=== PATIENT | male | born 1945 | race Caucasian/White ===

== ENCOUNTER 2021-05-16 15:53 | Emergency (ER) | payer MEDICARE, SELFPAY ==
--- NOTE | ~2021-05-16 | CT_ITS ---
EXAMINATION: CTA OF THE HEAD AND NECK CLINICAL INFORMATION: Possible aneurysm on CT of the head. COMPARISON: CT dated 05/16/2021 at 4:37 PM. TECHNIQUE: Test bolus sequences followed by intravenous administration 100 mL of Omnipaque 350. Helical imaging was performed in the axial plane from the mediastinum to the skull vertex. Delayed postcontrast imaging of the head was also performed. The data was processed at the fastener technologist's workstation for generation of MIP sequences. Three-dimensional volume rendered reformatted images were also generated at an offline 3-D workstation. Stenoses are assessed in accordance with NASCET criteria unless otherwise indicated. DLP: 1651 mGy-cm. FINDINGS: CT head: The hyperattenuating sellar/suprasellar lesion does not demonstrate significant enhancement on postcontrast images. No suspicious enhancing lesions are identified. There is no evidence of acute intracranial hemorrhage or territorial infarction. There is no loss of [place] to white matter differentiation. No abnormal mass effect or midline shift is seen. No extra-axial fluid collections are identified. The ventricles are normal in size. Multiple areas of hypoattenuation in the subcortical and periventricular white matter are most consistent with chronic microangiopathic changes. Small lacunar infarcts are present in the basal ganglia including the thalami. Globes are aphakic. The osseous structures and soft tissues are normal. The mastoid air cells and visualized portions of the paranasal sinuses are well aerated. CTA neck: The aortic arch is of normal contour and caliber. Classic 3 vessel branching pattern of the aortic arch. No significant stenosis of the branch origins. Dense calcific atherosclerotic plaques are present at the bilateral carotid bifurcations. There are no significant stenoses of the proximal internal carotid arteries by NASCET criteria. The cervical segments of the vertebral arteries opacify normally without focal stenosis or occlusion. Left vertebral artery is dominant. The thyroid gland is atrophic. Remaining cervical soft tissues are within normal limits. There is multilevel degenerative spondylosis in the cervical spine with a prominent posterior disc osteophyte complex at C5-C6 produces moderate to severe central canal stenosis. Additional mild neural foraminal encroachment is present at multiple levels. Interstitial opacities are evident at the lung apices. Imaged portion of the mediastinum is unremarkable. CTA head: Calcific atherosclerosis is present within the cavernous segments of both internal carotid arteries with relatively mild stenoses of up to 30 percent bilaterally. No no proximal large artery occlusion or saccular intradural aneurysm. The internal carotid arteries and contiguous with the suprasellar lesion. Normal appearance of the anterior cerebral and middle cerebral arteries without focal occlusion or stenosis. Normal anterior communicating artery. Normal arborization of the middle cerebral arteries. Normal appearance of the intradural vertebral and posterior inferior cerebellar arteries. Normal appearance of the basilar, superior cerebellar, and P1 segments of the posterior cerebral arteries. No posterior communicating arteries are identified. Normal appearance of the distal segments of the posterior cerebral arteries bilaterally. CT/CT angio head neck IMPRESSION: 1. No intracranial aneurysms. 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 A follow-up pituitary protocol MRI with and without contrast is advised. 2. Calcific atherosclerosis at the carotid bulbs bilaterally and at the cavernous segments of the internal carotid arteries. Mild stenoses are evident at the cavernous segments of the internal carotid arteries bilaterally. 3. Multilevel degenerative spondylosis in the cervical spine with a prominent posterior disc osteophyte complex at C5-C6 which produces moderate to severe central canal stenosis.
--- NOTE | ~2021-05-16 | CT_ITS ---
EXAMINATION: CT HEAD WITHOUT CONTRAST CLINICAL INFORMATION: Status post fall. COMPARISON: None TECHNIQUE: Contiguous axial imaging was performed from the skull base to vertex without intravenous administration of contrast. This CT examination was performed using dose optimization techniques as appropriate, variously including the following: *Automated exposure control *Adjustment of mA and/or kV according to patient size (this includes techniques or standardized protocols for targeted exams where dose is matched to indication/reason for exam; i.e. 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 An aneurysm from the and adjacent ICA cannot be excluded. A pituitary macroadenoma is unlikely based on the density of the lesion. Calcific atherosclerosis is present within the cavernous and supraclinoid segments of the internal carotid arteries. There is no evidence of acute intracranial hemorrhage or territorial infarction. No abnormal mass effect or midline shift is seen. [place] to white matter differentiation is well preserved. No extra-axial fluid collections are identified. The ventricles are normal in size. Multiple areas of hypoattenuation in the subcortical and periventricular white matter are most consistent with chronic microangiopathic changes. Small lacunar infarcts are present in the basal ganglia including the thalami. Globes are aphakic. The osseous structures and soft tissues are normal. The mastoid air cells and visualized portions of the paranasal sinuses are well aerated. CT/CT head/brain wo con IMPRESSION: No acute intracranial pathology. 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 An ICA aneurysm is felt to be less likely, but cannot be excluded. Consider further assessment with with pituitary protocol MRI a nonemergent basis. A CTA could also be obtained to better exclude aneurysm if warranted. Mild to moderate chronic white matter microangiopathy changes with small lacunar infarcts in the basal ganglia.
[2021-05-16 16:00] VITALS: BP 171/67; BP 202/100; PULSE 100; PULSE 102; RESP 23; TEMP 37.5; O2SAT 92; O2SAT 93; BMI 80.6
--- NOTE | 2021-05-16 16:33 | ED.GENADULT ---
HPI - General Adult General Chief complaint: General Medical Stated complaint: nausea vomiting unable to urinate Time Seen by Provider: 05/16/21 16:33 Source: patient Mode of arrival: EMS Limitations: no limitations History of Present Illness HPI narrative: Patient is 75 years old with diabetes, peripheral vascular disease status post a left BKA, hypertension and BP at came here for diarrhea since yesterday evening had 5 bowel movements since then also vomited 2 times with nausea and for last 2 days noticed that he has difficulty with pain in urination no fever chills no abdominal pain no flank pain patient does not get very often urinary tract infection also yesterday while transferring from scooter to wheelchair he lost balance and fell landed on the floor hitting his head to the ground no loss of consciousness no other significant injury at this time patient feels fine Related Data Previous Rx's Medication Instructions Recorded cefpodoxime 200 mg tablet 200 mg PO BID #20 tab 05/16/21 ondansetron 4 mg disintegrating 4 mg PO Q6-8H PRN #7 tab 05/16/21 tablet Allergies Allergy/AdvReac Type Severity Reaction Status Date / Time No Known Allergies [NKA] Allergy Mild NOT Unverified 07/02/20 17:38 APPLICABLE Review of Systems Review of Systems: Yes all other systems are reviewed and are negative [facility] Past Medical History Source: old records reviewed Medical History (Updated 05/16/21 @ 21:42 by Juancarlos Storm MD) BPH (benign prostatic hyperplasia) History of left below knee amputation Hyperlipidemia Hypertension Insulin dependent diabetes mellitus Peripheral vascular disease Social History Social History Patient Tobacco Use Status: Never used Tobacco Use of substances other than those prescribed or required for medical reasons: No Advance Directives: No Advance Directives Information Provided: Yes Physical Exam Vital Signs: Vital Signs: Last Vital Signs Temp 99.5 F 05/16/21 16:00 Pulse 98 05/16/21 18:16 Resp 24 H 05/16/21 18:16 BP 171/67 H 05/16/21 16:00 Pulse Ox 96 05/16/21 18:16 Body Mass Index 80.6 Appearance: Alert. Oriented X3. No acute distress. Eyes: PERRLA, No Nystagmus ENT: Pharynx normal. Oral Mucosa moist Neck: Normal inspection. Neck supple. CVS: Normal heart rate and rhythm. Pulses normal. Respiratory: No respiratory distress. Equal air entry bilateral, no wheezing/rales/rhonchi Abdomen: Soft and nontender. Bowel sounds are present, no mass palpable, no CVA tenderness Skin: Skin warm and dry. Normal skin color. Normal skin turgor. Extremities: No lower extremity edema. No calf tenderness, left BKA Neuro: Oriented X 3. No motor deficit. No sensory deficit.No cerebellar signs , cranial nerves II-XII intact Medical Decision Making MDM Narrative Medical decision making narrative: Patient with UTI elevated WBC count no fever no flank pain taking p.o. fluids will give 1 dose of IV Rocephin plan to discharge him home on p.o. antibiotics CT head and CTA head and neck negative patient taking p.o. fluids now feeling much better Lab Data Lab results reviewed: Yes I reviewed the patient's lab results. Result diagrams: 05/16/21 16:55 05/16/21 16:55 Labs: Lab Results 05/16/21 05/16/21 05/16/21 Range/Units 16:55 16:55 17:52 WBC 15.3 H (4.8-10.8) X10*3/uL RBC 4.91 (4.60-5.80) X10*6/uL Hgb 14.0 (14.0-18.0) g/dl Hct 43.9 (42-52) % MCV 89.4 (80-98) fL MCH 28.5 (27.0-33.0) pg MCHC 31.9 (31.0-36.0) g/dl RDW 14.7 (11.0-16.0) % Plt Count 203 (160-400) X10*3/uL MPV 10.8 (9.4-12.4) fL Immature Gran % (Auto) 1.4 H (0.0-0.4) % Neut % (Auto) 87.3 H (45-73) % Lymph % (Auto) 5.0 L (20-40) % [place] % (Auto) 5.9 (2-11) % Eos % (Auto) 0.1 (0-4) % Baso % (Auto) 0.3 (0-2) % Lymph # (Auto) 0.8 L (1.2-4.9) X10*3/uL [place] # (Auto) 0.9 (0.1-1.2) X10*3/uL Eos # (Auto) 0.0 (0.0-0.4) X10*3/uL Baso # (Auto) 0.0 (0.0-0.2) X10*3/uL Abs Immat Gran (auto) 0.22 H (0.00-0.03) X10*3/uL Absolute Neuts (auto) 13.4 H (2.0-8.3) X10*3/uL Absolute Nucleated RBC 0.000 (0.0-0.012) X10*3/uL Nucleated RBC % (auto) 0.0 (0.0-0.2) /100WBC Sodium 137 (135-145) mmol/L Potassium 3.9 (3.3-5.1) mmol/L Chloride 103 (96-108) mmol/L Carbon Dioxide 23 (22-29) mmol/L Anion Gap 15 (12-20) BUN 24 H (9-16) mg/dL Creatinine 1.22 (0.5-1.4) mg/dL Estim Creat Clear Calc 89.5 Estimated GFR 58 Random Glucose 169 H (60-115) mg/dL Calcium 9.1 (8.4-10.2) mg/dL Total Bilirubin 1.1 H (0.0-1.0) mg/dL Direct Bilirubin 0.6 H (0.0-0.5) mg/dL AST 20 (5-37) U/L ALT 10 (0-40) U/L Alkaline Phosphatase 97 (39-117) U/L Troponin I High Sens 20.2 (<3.5-35.0) ng/L Total Protein 8.3 H (6.5-8.0) g/dL Albumin 3.8 (3.5-5.0) g/dL Urine Color Urine Appearance Urine pH (5.0-8.0) Ur Specific [place] (1.005-1.025) Urine Protein (NEG-TRACE) MG/DL Urine Glucose (UA) (NEG) MG/DL Urine Ketones (NEG) MG/DL Urine Blood (NEG) Urine Nitrite (NEG) Ur Leukocyte Esterase (NEG) Urine RBC (0) /HPF Urine WBC (0-4) /HPF Ur Squamous Epith Cells /LPF Ur Renal Epithelial Cell /LPF Urine Bacteria /LPF 08/01/21 Range/Units 20:01 WBC (4.8-10.8) X10*3/uL RBC (4.60-5.80) X10*6/uL Hgb (14.0-18.0) g/dl Hct (42-52) % MCV (80-98) fL MCH (27.0-33.0) pg MCHC (31.0-36.0) g/dl RDW (11.0-16.0) % Plt Count (160-400) X10*3/uL MPV (9.4-12.4) fL Immature Gran % (Auto) (0.0-0.4) % Neut % (Auto) (45-73) % Lymph % (Auto) (20-40) % [place] % (Auto) (2-11) % Eos % (Auto) (0-4) % Baso % (Auto) (0-2) % Lymph # (Auto) (1.2-4.9) X10*3/uL [place] # (Auto) (0.1-1.2) X10*3/uL Eos # (Auto) (0.0-0.4) X10*3/uL Baso # (Auto) (0.0-0.2) X10*3/uL Abs Immat Gran (auto) (0.00-0.03) X10*3/uL Absolute Neuts (auto) (2.0-8.3) X10*3/uL Absolute Nucleated RBC (0.0-0.012) X10*3/uL Nucleated RBC % (auto) (0.0-0.2) /100WBC Sodium (135-145) mmol/L Potassium (3.3-5.1) mmol/L Chloride (96-108) mmol/L Carbon Dioxide (22-29) mmol/L Anion Gap (12-20) BUN (9-16) mg/dL Creatinine (0.5-1.4) mg/dL Estim Creat Clear Calc Estimated GFR Random Glucose (60-115) mg/dL Calcium (8.4-10.2) mg/dL Total Bilirubin (0.0-1.0) mg/dL Direct Bilirubin (0.0-0.5) mg/dL AST (5-37) U/L ALT (0-40) U/L Alkaline Phosphatase (39-117) U/L Troponin I High Sens (<3.5-35.0) ng/L Total Protein (6.5-8.0) g/dL Albumin (3.5-5.0) g/dL Urine Color YELLOW Urine Appearance CLOUDY Urine pH 6.0 (5.0-8.0) Ur Specific [place] 1.025 (1.005-1.025) Urine Protein 2+ H (NEG-TRACE) MG/DL Urine Glucose (UA) >=1000 H (NEG) MG/DL Urine Ketones 5 (NEG) MG/DL Urine Blood 3+ H (NEG) Urine Nitrite POS H (NEG) Ur Leukocyte Esterase TRACE H (NEG) Urine RBC 1-4 (0) /HPF Urine WBC TNTC H (0-4) /HPF Ur Squamous Epith Cells 1+ /LPF Ur Renal Epithelial Cell TRACE /LPF Urine Bacteria 3+ /LPF Discharge Plan Discharge Clinical Impression: Acute UTI Patient Disposition: Home, Self-Care Instructions: Urinary Tract Infection in Men (ED) Additional Instructions: Drink plenty of fluids take antibiotic as prescribed Report to the ER/PCP if not better or vomiting continues Prescriptions: New cefpodoxime 200 mg tablet 200 mg PO BID Qty: 20 RF: 0 ondansetron 4 mg tablet,disintegrating 4 mg PO Q6-8H PRN (Reason: nausea and vomiting) Qty: 7 RF: 0
--- NOTE | 2021-05-16 16:37 | ECG_ITS ---
Test Reason : N/V Blood Pressure : / mmHG Vent. Rate : 103 BPM Atrial Rate : 104 BPM P-R Int : 000 ms QRS Dur : 146 ms QT Int : 406 ms P-R-T Axes : 000 -61 102 degrees QTc Int : 531 ms Sinus tachycardia Left axis deviation Left bundle branch block Abnormal ECG When compared with ECG of 26-FEB-2014 12:17, New LBBB Referred By: Juancarlos Storm Electronically Signed By:OSMIN SHIPMAN
[2021-05-16] MEDS: 0.9 % Sodium Chloride 1,000 ML 999 ML IVCONT (16:58)
[2021-05-16 16:59] LABS: MANUAL DIFF FLAG NO
[2021-05-16 17:19] LABS: Basophils Percent Auto 0.3 % (0-2); Eosinophils Percent Auto 0.1 % (0-4); Hematocrit 43.9 % (42-52); Imm Gran Abs Auto 0.22 X10*3/uL (0.00-0.03); Imm Gran Pct Auto 1.4 % (0.0-0.4); Lymphocytes Absolute Auto 0.8 X10*3/uL (1.2-4.9); Mean Corpuscular HGB Conc 31.9 g/dl (31.0-36.0); Mean Corpuscular Hemoglobin 28.5 pg (27.0-33.0); Mean Corpuscular Volume 89.4 fL (80-98); Mean Platelet Volume 10.8 fL (9.4-12.4); Monocytes Absolute Auto 0.9 X10*3/uL (0.1-1.2); Monocytes Percent Auto 5.9 % (2-11); Neutrophils Absolute Auto 13.4 X10*3/uL (2.0-8.3); Neutrophils Percent Auto 87.3 % (45-73); Platelet Count 203 X10*3/uL (160-400); Red Blood Count 4.91 X10*6/uL (4.60-5.80); Red Cell Distribution Width 14.7 % (11.0-16.0); White Blood Count 15.3 X10*3/uL (4.8-10.8)
[2021-05-16 17:32] LABS: Alanine Aminotransferase 10 U/L (0-40); Albumin Level 3.8 g/dL (3.5-5.0); Alkaline Phosphatase 97 U/L (39-117); Anion Gap 15 (12-20); Aspartate Amino Transferase 20 U/L (5-37); Bilirubin Direct 0.6 mg/dL (0.0-0.5); Bilirubin Total 1.1 mg/dL (0.0-1.0); Blood Urea Nitrogen 24 mg/dL (9-16); Calcium 9.1 mg/dL (8.4-10.2); Carbon Dioxide 23 mmol/L (22-29); Chloride 103 mmol/L (96-108); Creatinine Clr Calc Pharmacy 89.5; Estimated Glomerular Filt Rate 58; Glucose Random 169 mg/dL (60-115); Potassium 3.9 mmol/L (3.3-5.1); Sodium 137 mmol/L (135-145); Total Protein 8.3 g/dL (6.5-8.0)
[2021-05-16 18:16] VITALS: PULSE 98; RESP 24; O2SAT 96
[2021-05-16 18:37] LABS: Troponin-I High Sensitivity 20.2 ng/L (<3.5-35.0)
[2021-05-16 20:00] VITALS: BP 137/68; PULSE 98; RESP 24; TEMP 37.5; O2SAT 96
[2021-05-16] MEDS: iohexoL 350 MG/ML 100 ML INFUS..BTL IV (20:25)
[2021-05-16 20:27] LABS: Glucose Urine UA >=1000 MG/DL (NEG); Leukocyte Esterase Urine TRACE (NEG); Nitrite Urine POS (NEG); Specific Gravity - Urine 1.025 (1.005-1.025); UACC Culture Trigger YES; Urine Blood 3+ (NEG); Urine Ketones 5 MG/DL (NEG); Urine Protein 2+ MG/DL (NEG-TRACE)
[2021-05-16 20:31] LABS: Appearance Urine CLOUDY; Color Urine YELLOW
[2021-05-16 20:59] LABS: Bacteria Urine 3+ /LPF; Renal Epithelial Cells Urine TRACE /LPF; Squamous Epithelial Cell Urine 1+ /LPF; WBC Urine TNTC /HPF (0-4)
[2021-05-16] MEDS: cefTRIAXone sodium 1 GM in 0.9 % Sodium Chloride 50 ML IV (21:36)
--- NOTE | 2021-05-16 22:17 | P.HPHOSP_ITS ---
[facility] Medical History (Updated 05/16/21 @ 21:42 by Juancarlos Storm MD) BPH (benign prostatic hyperplasia) History of left below knee amputation Hyperlipidemia Hypertension Insulin dependent diabetes mellitus Peripheral vascular disease Social History Patient Tobacco Use Status: Never used Tobacco Use of substances other than those prescribed or required for medical reasons: No Advance Directives: No Advance Directives Information Provided: Yes Meds Allergies Allergy/AdvReac Type Severity Reaction Status Date / Time No Known Allergies [NKA] Allergy Mild NOT Unverified 07/02/20 17:38 APPLICABLE Physical Exam Vital Signs and Narrative: Vital Signs: Last Vital Signs Temp 99.5 F 05/16/21 16:00 Pulse 98 05/16/21 18:16 Resp 24 H 05/16/21 18:16 BP 171/67 H 05/16/21 16:00 Pulse Ox 96 05/16/21 18:16 Body Mass Index 80.6 Results Labs CBC and Chem 7: 05/16/21 16:55 05/16/21 16:55 Labs: Laboratory Results - last 24 hr 05/16/21 05/16/21 05/16/21 16:55 16:55 17:52 MCV 89.4 MCH 28.5 MCHC 31.9 RDW 14.7 Plt Count 203 MPV 10.8 Immature Gran % (Auto) 1.4 H Neut % (Auto) 87.3 H Lymph % (Auto) 5.0 L [place] % (Auto) 5.9 Eos % (Auto) 0.1 Baso % (Auto) 0.3 Lymph # (Auto) 0.8 L [place] # (Auto) 0.9 Eos # (Auto) 0.0 Baso # (Auto) 0.0 Abs Immat Gran (auto) 0.22 H Absolute Neuts (auto) 13.4 H Absolute Nucleated RBC 0.000 Nucleated RBC % (auto) 0.0 Anion Gap 15 Estim Creat Clear Calc 89.5 Estimated GFR 58 Random Glucose 169 H Calcium 9.1 Total Bilirubin 1.1 H Direct Bilirubin 0.6 H AST 20 ALT 10 Alkaline Phosphatase 97 Troponin I High Sens 20.2 Total Protein 8.3 H Albumin 3.8 Urine Color Urine Appearance Urine pH Ur Specific [place] Urine Protein Urine Glucose (UA) Urine Ketones Urine Blood Urine Nitrite Ur Leukocyte Esterase Urine RBC Urine WBC Ur Squamous Epith Cells Ur Renal Epithelial Cell Urine Bacteria 05/16/21 20:01 MCV MCH MCHC RDW Plt Count MPV Immature Gran % (Auto) Neut % (Auto) Lymph % (Auto) [place] % (Auto) Eos % (Auto) Baso % (Auto) Lymph # (Auto) [place] # (Auto) Eos # (Auto) Baso # (Auto) Abs Immat Gran (auto) Absolute Neuts (auto) Absolute Nucleated RBC Nucleated RBC % (auto) Anion Gap Estim Creat Clear Calc Estimated GFR Random Glucose Calcium Total Bilirubin Direct Bilirubin AST ALT Alkaline Phosphatase Troponin I High Sens Total Protein Albumin Urine Color YELLOW Urine Appearance CLOUDY Urine pH 6.0 Ur Specific [place] 1.025 Urine Protein 2+ H Urine Glucose (UA) >=1000 H Urine Ketones 5 Urine Blood 3+ H Urine Nitrite POS H Ur Leukocyte Esterase TRACE H Urine RBC 1-4 Urine WBC TNTC H Ur Squamous Epith Cells 1+ Ur Renal Epithelial Cell TRACE Urine Bacteria 3+ Imaging Radiologist's Impressions: Impressions Head CT 05/16/21 16:37 IMPRESSION: No acute intracranial pathology. 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 An ICA aneurysm is felt to be less likely, but cannot be excluded. Consider further assessment with with pituitary protocol MRI a nonemergent basis. A CTA could also be obtained to better exclude aneurysm if warranted. Mild to moderate chronic white matter microangiopathy changes with small lacunar infarcts in the basal ganglia. Head/Neck CTA 05/16/21 19:14 IMPRESSION: 1. No intracranial aneurysms. 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 A follow-up pituitary protocol MRI with and without contrast is advised. 2. Calcific atherosclerosis at the carotid bulbs bilaterally and at the cavernous segments of the internal carotid arteries. Mild stenoses are evident at the cavernous segments of the internal carotid arteries bilaterally. 3. Multilevel degenerative spondylosis in the cervical spine with a prominent posterior disc osteophyte complex at C5-C6 which produces moderate to severe central canal stenosis.
== END 2021-05-16 22:51 | disposition home or self-care (01) ==
PROVIDERS: Emergency Provider Internal Medicine; PCP Internal Medicine Geriatric Medicine
DX: N39.0 Urinary tract infection, site not specified (principal); R11.2 Nausea with vomiting, unspecified; E11.9 Type 2 diabetes mellitus without complications; Z79.899 Other long term (current) drug therapy
CPT/HCPCS: 36415; 70450; 70496; 70498; 80048; 80076; 81001; 84484; 85025; 87086; 87088; 87186; 93005; 96365; 96375; 99284; J0696; J2405; Q9967

== ENCOUNTER 2023-06-27 10:25 | Outpatient (REF) | payer MEDICARE, SELFPAY ==
[2023-06-27 11:18] LABS: MANUAL DIFF FLAG NO
[2023-06-27 11:32] LABS: Estimated Average Glucose 163 mg/dL; Hemoglobin A1c % 7.3 % (<6.0)
[2023-06-27 11:37] LABS: Basophils Absolute Auto 0.1 X10*3/uL (0.0-0.2); Basophils Percent Auto 0.8 % (0-2); Eosinophils Absolute Auto 0.6 X10*3/uL (0.0-0.4); Eosinophils Percent Auto 7.3 % (0-4); Hematocrit 40.7 % (42.0-52.0); Hemoglobin 12.9 g/dl (14.0-18.0); Imm Gran Abs Auto 0.03 X10*3/uL (0.00-0.03); Imm Gran Pct Auto 0.3 % (0.0-0.4); Lymphocytes Absolute Auto 2.6 X10*3/uL (1.2-4.9); Mean Corpuscular HGB Conc 31.7 g/dl (31.0-36.0); Mean Corpuscular Hemoglobin 28.7 pg (27.0-33.0); Mean Corpuscular Volume 90.4 fL (80.0-98.0); Mean Platelet Volume 10.7 fL (9.4-12.4); Monocytes Absolute Auto 0.7 X10*3/uL (0.1-1.2); Monocytes Percent Auto 8.4 % (2-11); Neutrophils Absolute Auto 4.6 x10*3/uL (2.0-8.3); Neutrophils Percent Auto 53.2 % (45-73); Platelet Count 220 X10*3/uL (160-400); Red Cell Distribution Width 14.1 % (11.0-16.0); White Blood Count 8.7 X10*3/uL (4.8-10.8)
[2023-06-27 12:13] LABS: Alanine Aminotransferase 10 U/L (0-40); Albumin Level 3.4 g/dL (3.5-5.0); Alkaline Phosphatase 112 U/L (39-117); Anion Gap 9 (12-20); Aspartate Amino Transferase 15 U/L (5-37); Bilirubin Total 0.3 mg/dL (0.0-1.0); Blood Urea Nitrogen 15 mg/dL (9-16); Carbon Dioxide 27 mmol/L (22-29); Chloride 110 mmol/L (96-108); Cholesterol 91 mg/dL (<200); Estimated Glomerular Filt Rate > 60; Glucose Random 139 mg/dL (60-115); HDL Cholesterol 30 mg/dL (>40); LDL Cholesterol Calculated 45 mg/dL (<100); Potassium 3.9 mmol/L (3.3-5.1); Sodium 142 mmol/L (135-145); Total Protein 7.7 g/dL (6.5-8.0); Triglycerides 81 mg/dL (<150)
[2023-06-27 14:49] LABS: Creatinine Urine 87.48 mg/dL
[2023-06-27 15:06] LABS: Microalbum/Creatinine Ratio Ur 1092.8 ug/mg cr (<30)
== END 2023-06-27 10:26 | disposition home or self-care (01) ==
LOC: HO.HHCL 10:25
PROVIDERS: Visit Provider Internal Medicine Geriatric Medicine
DX: E11.59 Type 2 diabetes mellitus with other circulatory complications (principal); Z79.4 Long term (current) use of insulin
CPT/HCPCS: 36415; 80053; 80061; 82043; 82570; 83036; 85025

== ENCOUNTER 2023-07-25 13:54 | Outpatient (REF) | payer MEDICARE, SELFPAY ==
[2023-07-25 16:33] LABS: Anion Gap 12 (12-20); Blood Urea Nitrogen 15 mg/dL (9-16); Calcium 9.9 mg/dL (8.4-10.2); Carbon Dioxide 28 mmol/L (22-29); Chloride 103 mmol/L (96-108); Estimated Glomerular Filt Rate > 60; Glucose Random 101 mg/dL (60-115); Potassium 4.5 mmol/L (3.3-5.1); Sodium 138 mmol/L (135-145)
== END 2023-07-25 13:55 | disposition home or self-care (01) ==
LOC: HO.HHCL 13:54
PROVIDERS: Visit Provider Internal Medicine Geriatric Medicine
DX: E11.59 Type 2 diabetes mellitus with other circulatory complications (principal); Z79.4 Long term (current) use of insulin
CPT/HCPCS: 36415; 80048

== ENCOUNTER 2023-08-10 11:48 | Outpatient (REF) | payer MEDICARE, SELFPAY ==
[2023-08-10 13:25] LABS: Anion Gap 12 (12-20); Blood Urea Nitrogen 18 mg/dL (9-16); Calcium 9.2 mg/dL (8.4-10.2); Carbon Dioxide 25 mmol/L (22-29); Chloride 106 mmol/L (96-108); Estimated Glomerular Filt Rate > 60; Glucose Random 171 mg/dL (60-115); Potassium 4.1 mmol/L (3.3-5.1); Sodium 139 mmol/L (135-145)
== END 2023-08-10 11:49 | disposition home or self-care (01) ==
LOC: HO.HHCL 11:48
PROVIDERS: Visit Provider Internal Medicine Geriatric Medicine
DX: E11.59 Type 2 diabetes mellitus with other circulatory complications (principal); Z79.4 Long term (current) use of insulin
CPT/HCPCS: 36415; 80048

== ENCOUNTER 2023-11-07 10:17 | Outpatient (REF) | payer MEDICARE, SELFPAY ==
[2023-11-07 13:05] LABS: Anion Gap 10 (12-20); Blood Urea Nitrogen 14 mg/dL (9-16); Calcium 9.3 mg/dL (8.4-10.2); Carbon Dioxide 28 mmol/L (22-29); Chloride 107 mmol/L (96-108); Estimated Glomerular Filt Rate > 60; Glucose Random 173 mg/dL (60-115); Potassium 4.4 mmol/L (3.3-5.1); Sodium 141 mmol/L (135-145)
[2023-11-07 13:33] LABS: Creatinine Urine 67.27 mg/dL
[2023-11-07 13:48] LABS: Microalbum/Creatinine Ratio Ur 1080.7 ug/mg cr (<30)
== END 2023-11-07 10:18 | disposition home or self-care (01) ==
LOC: HO.HHCL 10:17
PROVIDERS: Visit Provider Internal Medicine Geriatric Medicine
DX: E11.59 Type 2 diabetes mellitus with other circulatory complications (principal); I73.9 Peripheral vascular disease, unspecified; N18.9 Chronic kidney disease, unspecified; Z79.4 Long term (current) use of insulin
CPT/HCPCS: 36415; 80048; 82043; 82570

== ENCOUNTER 2024-02-14 10:21 | Outpatient (REF) | payer MEDICARE, SELFPAY ==
[2024-02-14 12:16] LABS: Calcium 9.1 mg/dL (8.4-10.2); Chloride 107 mmol/L (96-108); Potassium 4.3 mmol/L (3.3-5.1); Sodium 139 mmol/L (135-145)
== END 2024-02-14 10:22 | disposition home or self-care (01) ==
LOC: HO.HHCL 10:21
PROVIDERS: Visit Provider Internal Medicine Geriatric Medicine
DX: E11.59 Type 2 diabetes mellitus with other circulatory complications (principal); Z79.4 Long term (current) use of insulin; I25.10 Atherosclerotic heart disease of native coronary artery without angina pectoris; I73.9 Peripheral vascular disease, unspecified
CPT/HCPCS: 36415; 80053; 80061; 82043; 82570; 85025

== ENCOUNTER 2024-02-28 14:10 | Outpatient (AMB) | payer OTHER, SELFPAY ==
--- NOTE | 2024-02-28 14:12 | HO.NEPHOV ---
Vital Signs 02/28/24 14:15 BP 116/58 L Blood Pressure Location Lt brachial Position Sitting Pulse 44 L Pulse Source Pulse Oximeter Pulse Oximetry (%) 94 Oxygen Delivery Method Room Air Intake Visit Reasons: CKD/ Confirmed Cell Tester Required: No Accompanied by: Family/Other Allergies No Known Allergies [NKA] Allergy (Mild, Verified 02/28/24 14:14) NOT APPLICABLE HPI Comments Details: 78-year-old man with a history of longstanding diabetes mellitus for at least 30 years complicated by peripheral vascular disease has been referred for proteinuria. His recent serum creatinine was 0.98 mg/dL which is probably his baseline. He was accompanied by his son-in-law was helpful with translation. Rodrigo has a history of smoking for almost 45 years. He quit smoking 15 years ago. No history of renal alcohol abuse. He denies any polyuria or polydipsia. New line pain. No shortness of breath no fever no weight loss. All his medications were reviewed. He is on lisinopril 20 mg along with kerendia [facility] Medical History (Updated 02/28/24 @ 14:31 by Luis Angel Rodriguez MD) BPH (benign prostatic hyperplasia) Hyperlipidemia Hypertension Peripheral vascular disease Insulin dependent diabetes mellitus Surgical History History of left below knee amputation Social History Patient Tobacco Use Status: Never used Tobacco Physical Exam Vital Signs: Last Vital Signs Pulse 44 L 02/28/24 14:15 BP 116/58 L 02/28/24 14:15 Pulse Ox 94 02/28/24 14:15 Oxygen Delivery Method Room Air 02/28/24 14:15 Const Other: Currently in a wheelchair General: comfortable Nutritional Appearance: well nourished Orientation/consciousness: patient oriented x3 HEENT Head: No normal to inspection Mouth: moist mucous membranes Neck Neck: Yes supple and Yes no JVD Resp Auscultation: clear to auscultation bilaterally, no rales and rub present Cardio Jugular venous distension: no JVD Palpation: no palpable S3 and no palpable S4 Heart sounds: no rubs GI Palpation (GI): Soft to palpation and nontender Percussion: No Fluid wave present General: Yes no CVA tenderness Back/Spine/Pelvis Back: no CVA tenderness Skin General skin exam: no rashes or lesions noted Neuro General: patient oriented x3 Extrem Other: Below-knee amputation left lower extremity General: Yes no pedal edema and No clubbing Results Reviewed Nephrology Results: Hgb 13.3 g/dl (14.0-18.0) L 02/14/24 WBC 8.0 X10*3/uL (4.8-10.8) 02/14/24 Plt Count 191 X10*3/uL (160-400) 02/14/24 Sodium 139 mmol/L (135-145) 02/14/24 Potassium 4.3 mmol/L (3.3-5.1) 02/14/24 Chloride 107 mmol/L (96-108) 02/14/24 Carbon Dioxide 24 mmol/L (22-29) 02/14/24 BUN 16 mg/dL (9-16) 02/14/24 Creatinine 0.99 mg/dL (0.5-1.4) 02/14/24 Calcium 9.1 mg/dL (8.4-10.2) 02/14/24 Urine Protein 2+ MG/DL (NEG-TRACE) H 05/16/21 Urine Creatinine 85.48 mg/dL 02/14/24 Assessment & Plan Assessment & Plan (1) Hypertension: Code(s): I10 - Essential (primary) hypertension Category: Medical (2) Proteinuria: Code(s): R80.9 - Proteinuria, unspecified Category: Medical (3) Diabetes mellitus: Code(s): E11.9 - Type 2 diabetes mellitus without complications Category: Medical Plan . 78-year-old man with history of longstanding diabetes mellitus hypertension with non nephrotic range proteinuria and essentially stable renal function with a creatinine 0.9 mg Proteinuria is most likely due to underlying diabetic kidney disease. Nondiabetic causes should certainly be ruled out. Workup initiated for the same. Recommendations We will check renal ultrasonogram ordered. Recheck urine protein creatinine ratio Check protein electrophoresis for monoclonal proteins Continue with ISAURO inhibitor . Watch potassium while he was on combination of Isauro inhibitors and Kerendia Maintain blood pressure less than 130/80. Maintain hemoglobin A1c less than 7%. Continue to avoid nephrotoxic agents including NSAIDs. Further workup will be based on the outcome of the above baseline investigations Orders: Orders Comprehensive Met. Panel Today I10 - Essential (primary) hypertension, N18.9 - Chronic kidney disease, unspecified, R80.9 - Proteinuria, unspecified Total Protein Urine Random Today I10 - Essential (primary) hypertension, R80.9 - Proteinuria, unspecified US renal BI Today I10 - Essential (primary) hypertension, R80.9 - Proteinuria, unspecified UA and rflx microscopic Today I10 - Essential (primary) hypertension, R80.9 - Proteinuria, unspecified Creatinine Urine Today I10 - Essential (primary) hypertension, N05.9 - Unspecified nephritic syndrome with unspecified morphologic changes, R80.9 - Proteinuria, unspecified Protein Electrophoresis, Serum Today I10 - Essential (primary) hypertension, R80.9 - Proteinuria, unspecified Complement C4 Today I10 - Essential (primary) hypertension, R80.9 - Proteinuria, unspecified Complement C3 Today I10 - Essential (primary) hypertension, R80.9 - Proteinuria, unspecified Vitamin D 25-OH (D2 and D3) Today I10 - Essential (primary) hypertension, R80.9 - Proteinuria, unspecified Medications: Discontinued cefpodoxime must administer with a meal/food Discontinued Reason: Patient no longer taking 200 mg PO BID 20 tabs 0RF ondansetron Discontinued Reason: Patient no longer taking 4 mg PO Q6-8H PRN 7 tabs 0RF nausea and vomiting Coding Level of Care Code New Pt Level 4 (14775) Diagnoses Hypertension I10 Proteinuria R80.9 Diabetes mellitus E11.9
[2024-02-28 14:15] VITALS: BP 116/58; PULSE 44; O2SAT 94
== END 2024-02-28 14:36 | disposition home or self-care (01) ==
PROVIDERS: PCP Internal Medicine Geriatric Medicine; Visit Provider Internal Medicine Hypertension Specialist
DX: I10 Essential (primary) hypertension (principal); R80.9 Proteinuria, unspecified; E11.9 Type 2 diabetes mellitus without complications
CPT/HCPCS: 99204

== ENCOUNTER → 2024-02-28 14:10 | Outpatient (BNVA) | payer OTHER, SELFPAY | PROVIDERS: PCP Internal Medicine Geriatric Medicine; Visit Provider Internal Medicine Hypertension Specialist | DX: E11.9 Type 2 diabetes mellitus without complications (principal); I10 Essential (primary) hypertension; R80.9 Proteinuria, unspecified | CPT/HCPCS: 99202 ==

== ENCOUNTER 2024-03-20 13:41 | Outpatient (AMB) | payer OTHER, SELFPAY ==
[2024-03-20 13:43] VITALS: BP 122/60; PULSE 47; O2SAT 97; BMI 33.3
--- NOTE | 2024-03-20 13:43 | HO.NEPHOV_ITS ---
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 His recent serum creatinine was 0.98 mg/dL which is probably his baseline. He was accompanied by his son-in-law was helpful with translation. Rodrigo has a history of smoking for almost 45 years. He quit smoking 15 years ago. No history of renal alcohol abuse. He denies any polyuria or polydipsia. New line pain. No shortness of breath no fever no weight loss. All his medications were reviewed. He is on lisinopril 20 mg along with kerendia 03/20/2024. Accompanied by son. No new complaints today. Did not go for lab work as ordered. No new issues today. Blood sugars have been better controlled [facility] Medical History (Updated 02/28/24 @ 14:31 by Luis Angel Rodriguez MD) BPH (benign prostatic hyperplasia) Hyperlipidemia Hypertension Peripheral vascular disease Insulin dependent diabetes mellitus Surgical History History of left below knee amputation Social History Patient Tobacco Use Status: Never used Tobacco Physical Exam Vital Signs: Last Vital Signs Pulse 47 L 03/20/24 13:43 BP 122/60 03/20/24 13:43 Pulse Ox 97 03/20/24 13:43 Oxygen Delivery Method Room Air 03/20/24 13:43 BMI result Body Mass Index 33.3 Const Other: Currently in a wheelchair General: comfortable Nutritional Appearance: well nourished Orientation/consciousness: patient oriented x3 HEENT Head: No normal to inspection Mouth: moist mucous membranes Neck Neck: Yes supple and Yes no JVD Resp Auscultation: clear to auscultation bilaterally, no rales and rub present Cardio Jugular venous distension: no JVD Palpation: no palpable S3 and no palpable S4 Heart sounds: no rubs GI Palpation (GI): Soft to palpation and nontender Percussion: No Fluid wave present General: Yes no CVA tenderness Back/Spine/Pelvis Back: no CVA tenderness Skin General skin exam: no rashes or lesions noted Neuro General: patient oriented x3 Extrem Other: Below-knee amputation left lower extremity General: Yes no pedal edema and No clubbing Results Reviewed Nephrology Results: Hgb 13.3 g/dl (14.0-18.0) L 02/14/24 WBC 8.0 X10*3/uL (4.8-10.8) 02/14/24 Plt Count 191 X10*3/uL (160-400) 02/14/24 Sodium 139 mmol/L (135-145) 02/14/24 Potassium 4.3 mmol/L (3.3-5.1) 02/14/24 Chloride 107 mmol/L (96-108) 02/14/24 Carbon Dioxide 24 mmol/L (22-29) 02/14/24 BUN 16 mg/dL (9-16) 02/14/24 Creatinine 0.99 mg/dL (0.5-1.4) 02/14/24 Calcium 9.1 mg/dL (8.4-10.2) 02/14/24 Urine Protein 2+ MG/DL (NEG-TRACE) H 05/16/21 Urine Creatinine 85.48 mg/dL 02/14/24 Assessment & Plan Assessment & Plan (1) Proteinuria: Code(s): R80.9 - Proteinuria, unspecified Category: Medical (2) Hypertension: Code(s): I10 - Essential (primary) hypertension Category: Medical (3) Diabetes mellitus: Code(s): E11.9 - Type 2 diabetes mellitus without complications Category: Medical Plan . 78-year-old man with history of longstanding diabetes mellitus hypertension with non nephrotic range proteinuria and essentially stable renal function with a creatinine 0.9 mg Proteinuria is most likely due to underlying diabetic kidney disease. Nondiabetic causes should be ruled out. - Workup in progress Recommendations renal ultrasonogram pending Follow urine protein creatinine ratio Reordered protein electrophoresis for monoclonal proteins Continue with ISAURO inhibitor . Watch potassium while he was on combination of Isauro inhibitors and Kerendia Maintain blood pressure less than 130/80. Maintain hemoglobin A1c less than 7%. Continue to avoid nephrotoxic agents including NSAIDs. Encouraged to stand low-sodium diet Increase p.o. fluid intake Orders: Orders Complement C3 Today R80.9 - Proteinuria, unspecified Basic Metabolic Panel Today R80.9 - Proteinuria, unspecified Complement C4 Today R80.9 - Proteinuria, unspecified Protein Electrophoresis, Serum Today R80.9 - Proteinuria, unspecified Coding Level of Care Code Est Pt Level 4 (78462) Diagnoses Proteinuria R80.9 Hypertension I10 Diabetes mellitus E11.9
== END 2024-03-20 13:56 | disposition home or self-care (01) ==
LOC: HO.HKAM 13:41
PROVIDERS: PCP Internal Medicine Geriatric Medicine; Visit Provider Internal Medicine Hypertension Specialist
DX: R80.9 Proteinuria, unspecified (principal); I10 Essential (primary) hypertension; E11.9 Type 2 diabetes mellitus without complications
CPT/HCPCS: 99214

== ENCOUNTER → 2024-03-20 13:41 | Outpatient (BNVA) | payer OTHER, SELFPAY | PROVIDERS: PCP Internal Medicine Geriatric Medicine; Visit Provider Internal Medicine Hypertension Specialist | DX: I10 Essential (primary) hypertension (principal); R80.9 Proteinuria, unspecified; E11.9 Type 2 diabetes mellitus without complications | CPT/HCPCS: 99212 ==

== ENCOUNTER 2024-03-20 14:02 | Outpatient (REF) | payer OTHER, SELFPAY ==
[2024-03-20 16:47] LABS: Alanine Aminotransferase 10 U/L (0-40); Albumin Level 3.6 g/dL (3.5-5.0); Alkaline Phosphatase 95 U/L (39-117); Anion Gap 15 (12-20); Aspartate Amino Transferase 17 U/L (5-37); Bilirubin Total 0.3 mg/dL (0.0-1.0); Blood Urea Nitrogen 17 mg/dL (9-16); Calcium 9.3 mg/dL (8.4-10.2); Carbon Dioxide 22 mmol/L (22-29); Chloride 108 mmol/L (96-108); Estimated Glomerular Filt Rate > 60; Glucose Random 163 mg/dL (60-115); Potassium 4.4 mmol/L (3.3-5.1); Sodium 141 mmol/L (135-145)
[2024-03-21 22:48] LABS: Complement C3 147 mg/dL (82-185)
[2024-03-22 21:18] LABS: PES - Abn Protein Band 1 0.6 g/dL (NONE DETECTED); Prot Elec - Albumin 3.5 g/dL (3.8-4.8); Prot Elec - Alpha1 0.3 g/dL (0.2-0.3); Prot Elec - Alpha2 0.9 g/dL (0.5-0.9); Prot Elec - Beta 1 0.5 g/dL (0.4-0.6); Prot Elec - Beta 2 0.6 g/dL (0.2-0.5); Prot Elec - Total Protein 7.7 g/dL (6.1-8.1)
[2024-03-24 17:10] LABS: Vitamin D 25-OH, D2 <4 ng/mL; Vitamin D 25-OH, D3 18 ng/mL; Vitamin D 25-OH, Total 18 ng/mL (30-100)
== END 2024-03-20 14:03 | disposition home or self-care (01) ==
LOC: HO.HHCL 14:02
PROVIDERS: Visit Provider Internal Medicine Hypertension Specialist
DX: R80.9 Proteinuria, unspecified (principal); I12.9 Hypertensive chronic kidney disease with stage 1 through stage 4 chronic kidney disease, or unspecified chronic kidney disease; N18.9 Chronic kidney disease, unspecified
CPT/HCPCS: 36415; 80053; 82306; 84165; 86160

== ENCOUNTER 2024-04-02 12:57 | Outpatient (REF) | payer OTHER, SELFPAY ==
--- NOTE | ~2024-04-02 | US_ITS ---
EXAMINATION: US RETROPERITONEAL LIMITED (RENAL ONLY) CLINICAL INFORMATION: Proteinuria, unspecified. COMPARISON: CT abdomen and pelvis 12/21/2017. TECHNIQUE: Real-time imaging of the kidneys. FINDINGS: RIGHT KIDNEY: 11.1 x 5.8 x 5.0 cm (SAG x AP x TRV). The kidney is normal in size, contour, and echogenicity. Renal cortical thickness is normal. No hydronephrosis. 1.5 cm simple cyst in the lower pole. 2.1 cm simple cyst in the lower pole. No imaging follow-up is recommended. Possible 0.8 cm nonobstructing calculus in the mid kidney. LEFT KIDNEY: 10.3 x 5.6 x 5.2 cm (SAG x AP x TRV). The kidney is normal in size, contour, and echogenicity. Renal cortical thickness is normal. No renal calculi or hydronephrosis. 5.9 cm thinly septated cyst in the upper pole. 2.1 cm simple cyst in the lower pole. US/US renal BI IMPRESSION: Renal parenchymal echogenicity appears normal. Normal size kidneys. Bilateral Bosniak 1 and Bosniak 2 benign renal cysts for which no imaging follow-up is recommended. Possible 0.8 cm nonobstructing calculus in the mid right kidney. No hydronephrosis.
== END 2024-04-02 12:58 | disposition home or self-care (01) ==
LOC: HO.US 12:57
PROVIDERS: PCP Internal Medicine Geriatric Medicine; Visit Provider Internal Medicine Hypertension Specialist
DX: R80.9 Proteinuria, unspecified (principal); I10 Essential (primary) hypertension
CPT/HCPCS: 76775

== ENCOUNTER 2024-07-04 11:21 | Outpatient (REF) | payer OTHER, SELFPAY ==
[2024-07-04 13:53] LABS: Anion Gap 10 (12-20); Blood Urea Nitrogen 18 mg/dL (9-16); Calcium 9.4 mg/dL (8.4-10.2); Carbon Dioxide 29 mmol/L (22-29); Chloride 107 mmol/L (96-108); Estimated Glomerular Filt Rate > 60; Glucose Random 157 mg/dL (60-115); Potassium 4.9 mmol/L (3.3-5.1); Sodium 141 mmol/L (135-145)
== END 2024-07-04 11:22 | disposition home or self-care (01) ==
LOC: HO.HHCL 11:21
PROVIDERS: Visit Provider Internal Medicine Geriatric Medicine
DX: E11.59 Type 2 diabetes mellitus with other circulatory complications (principal); Z79.4 Long term (current) use of insulin; N18.30 Chronic kidney disease, stage 3 unspecified
CPT/HCPCS: 36415; 80048

== ENCOUNTER 2025-01-29 10:06 | Outpatient (REF) | payer OTHER, SELFPAY ==
--- OUTSIDE RECORDS SUMMARY | 2025-01-29 11:39 | XMS_ITS | Clinical Summary ---
Author Organization [employer] Address [address] [place] [address] Care Team Providers Care Mailing Section Clerk Name Role Phone Name, Young SORENSON Primary Care Provider [phone] Addie Adams PharmD Unavailable [phone] Allergies No known active allergies Medications glucagon (Baqsimi Two Pack) 3 MG/DOSE nasal powder Administer 3 mg into affected nostril(s) 1 (one) time if needed for low blood sugar. 1 each 1 3 Active Continuous Blood Gluc Space Buyer (FreeStyle Elver 2 [place]) device Use daily as directed 1 each 3 Active glucose (TRUEplus Glucose On The Go) 4 g chewable tabletIndicatio ns:Type 2 diabetes mellitus with other circulatory complication, with long-term current use of insulin ([facility]) Chew 4 tablets (16 g) if needed for low blood sugar. 20 tablet 5 3 Active Alcohol Swabs (Alcohol Prep) 70 % pads USE DIRECTED 100 each 11 4 Active FREESTYLE LITE test stripIndication s:Type 2 diabetes mellitus with other circulatory complication, with long-term current use of insulin ([facility]) TEST BLOOD SUGAR 4 TIMES A DAY 100 strip 11 4 Active insulin degludec (Tresiba FlexTouch) 200 UNIT/ML injectionIndica tions:Type 2 diabetes mellitus with other circulatory complication, with long-term current use of insulin ([facility]) Inject 22 units subQ once daily as directed 9 mL 5 4 Active insulin pen needle 32G x 4 mm miscIndications :Type 2 diabetes mellitus with other circulatory complication, with long-term current use of insulin ([facility]) Use to inject insulin 1 times daily 100 each 3 4 Active carvedilol (Coreg) 3.125 MG tabletIndicatio ns:Coronary artery disease involving mentasta heart without angina pectoris, unspecified vessel or lesion type TAKE 1 TABLET BY MOUTH TWICE DAILY IN THE MORNING AND IN THE EVENING 180 tablet 1 4 Active clopidogrel (Plavix) 75 MG tabletIndicatio ns:Coronary artery disease involving mentasta heart without angina pectoris, unspecified vessel or lesion type TAKE 1 TABLET BY MOUTH EVERY MORNING 90 tablet 1 4 Active simvastatin (Zocor) 20 MG tabletIndicatio ns:Coronary artery disease involving mentasta heart without angina pectoris, unspecified vessel or lesion type TAKE 1 TABLET BY MOUTH EVERY EVENING 90 tablet 1 4 Active traZODone (Desyrel) 50 MG tabletIndicatio ns:Insomnia, unspecified type TAKE 1 TABLET BY MOUTH AT BEDTIME 90 tablet 1 4 Active Finerenone (Kerendia) 20 MG tabletIndicatio ns:Type 2 diabetes mellitus with other circulatory complication, with long-term current use of insulin ([facility]) Take 1 tablet by mouth in the morning. 30 tablet 5 4 Active Semaglutide, 2 MG/DOSE, (Ozempic, 2 MG/DOSE,) 8 MG/3ML solution pen-injectorInd ications:Type 2 diabetes mellitus with other circulatory complication, with long-term current use of insulin ([facility]) Inject 0.75 mL (2 mg) under the skin 1 (one) time per week. 3 mL 4 09/04/20 25 Active Continuous Glucose Sensor (FreeStyle Elver 2 Sensor) [facility] USE DIRECTED TO TEST BLOOD SUGAR CHANGE EVERY 14 DAYS 2 each 5 4 Active TRUEplus Lancets 33G miscIndications :Diabetes mellitus type 2 in nonobese ([facility]) TEST BLOOD SUGAR FOUR TIMES DAILY 100 each 11 5 Active sertraline (Zoloft) 50 MG tabletIndicatio ns:Hypertension , unspecified type TAKE 1 TABLET BY MOUTH EVERY MORNING 90 tablet 1 5 Active lisinopril 20 MG tabletIndicatio ns:Hypertension , unspecified type TAKE 1 TABLET BY MOUTH AT BEDTIME 90 tablet 1 5 Active aspirin (Aspirin Adult Low Strength) 81 MG EC tabletIndicatio ns:Hypertension , unspecified type TAKE 1 TABLET BY MOUTH AT BEDTIME 90 tablet 1 5 Active tamsulosin (Flomax) 0.4 MG 24 hr capsuleIndicati ons:Hypertensio n, unspecified type TAKE 1 CAPSULE BY MOUTH EVERY MORNING 90 capsule 1 5 Active gabapentin (Neurontin) 300 MG capsuleIndicati ons:Hypertensio n, unspecified type TAKE 1 CAPSULE BY MOUTH THREE TIMES DAILY IN THE MORNING, AT NOON, AND IN THE EVENING 270 capsule 5 Active albuterol 108 (90 Base) MCG/ACT inhalerIndicati ons:Type 2 diabetes mellitus with other circulatory complication, with long-term current use of insulin ([facility]),Diabe tic nephropathy associated with type 2 diabetes mellitus ([facility]) Inhale 2 puffs every 6 (six) hours if needed for wheezing. 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 Diabetic retinopathy associa mary with type 2 diabetes mellitus 07/05/2017 Fever 04/25/2017 Amputated toe 04/28/2016 History of amputation of leg through tibia and f ibula 04/28/2016 Stented coronary artery 04/28/2016 Retinal detachment 05/06/2013 Anxiety 11/02/2012 Atherosclerosis of coronary artery 11/02/2012 Hyperlipidemia 11/02/2012 Type 2 diabetes mellitus 11/02/2012 Acquired trigger finger 07/03/2012 PAD (peripheral artery disease) 03/11/2010 Resolved Problems Problem Noted Date Diagnosed Date Resolved Date Mononeuritis 03/16/2012 07/25/2023 Encounters Date Type Department Care Team Description 01/29/2025 Refill [facility] [address] [place] [address] NameYoung MD Type 2 diabetes mellitus with other circulatory complication, with long-term current use of insulin ([facility]) 01/22/2025 3:15 PM EDT Office Visit [facility] [address] [place] [phone] NameYoung MD Type 2 diabetes mellitus with other circulatory complication, with long-term current use of insulin ([facility]) (Primary Dx); Diabetic nephropathy associated with type 2 diabetes mellitus ([facility]); PAD (peripheral artery disease) ([facility]) 01/22/2025 Travel 12/10/2024 Refill [facility] [address] [place] [address] Young Pradhan MD Hypertension, unspecified type 12/10/2024 Telephone [facility] [address] [place] [address] Young Pradhan MD 12/06/2024 Refill [facility] [address] [place] [address] Young Pradhan MD Hypertension, unspecified type 12/01/2024 Refill [facility] [address], [place] [id number] Young Pradhan MD Hypertension, unspecified type 11/26/2024 Refill [facility] [address] [place] [address] Young Pradhan MD Diabetes mellitus type 2 in nonobese ([facility]) from Last 3 Months Immunizations Name Administration Dates Next Due Hep B, adult 02/17/2010,05/23/2008,04/22/2008 Influenza High-dose Quadriva lent Preservative Free 07/06/2023,07/14/2021,08/11/2020 Influenza injectable quadriv alent IIV4 with preservative 07/29/2016,07/27/2015 Influenza, High Dose Seasona l, Preservative Free 07/11/2024,11/19/2019,08/06/2018,07/05 Influenza, IIV3, injectable 07/11/2014, 1 Influenza, Split (incl. jason fied surface antigen) 09/23/2013,07/03/2012 Pfizer Covid-19 Vaccine 12+ 07/11/2024, 3 Pfizer Covid-19 Vaccine 12+ Bivalent 10/28/2022 Pneumococcal Conjugate PCV 13 02/16/2016 Pneumococcal Conjugate PCV 20 07/06/2023 Pneumococcal Polysaccharide PPSV23 10/12/2010 RSV Bivalent 09/26/2023 TD (adult), 2 Lf tetanus tox oid, preservative free, adsorbed 04/22/2008 Tdap 04/04/2017 Zoster, Recombinant 03/18/2022,01/07/2022 Zoster, live 02/17/2010 Social History Tobacco Use Types Packs/Day Years Used Date Smoking Tobacco: Former Cigarettes Smokeless Tobacco: Never Tobacco Cessation:Counseling Given: Not Answered Alcohol Use Standard Drinks/Week Comments Never 0 (1 standard drink = 0.6 oz pur e alcohol) Alcohol Answer Date Recorded Frequency of Alcohol Consumption Not on file 06/03/2024 Average Number of Drinks Not on file 024 Frequency of Binge Drinking Not on file 05/16 Score 0 06/03/2024 Depression Answer Date Recorded Patient Health Questionnaire-9 Score 0 06/03/2024 Patient Health Questionnaire-9 Score 0 06/03/2024 Last PHQ-9: Questionnaire Data Not on file 0 06/03/2024 Housing Stability Answer Date Recorded What is your housing situation today? I have thea long 06/03/[address] you li ve. Do you have problems with any of the following? None of the above 06/03/2024 Food Insecurity Answer Date Recorded Within the past 12 months, y ou worried that your food would run out before you got money to buy more: Never True 06/03/2024 Within the past 12 months,th e food you bought just didn't last and you didn't have enough money to get more: Never True Transportation Answer Date Recorded In the past 12 months, has l ack of transportation kept you from medical appts, meetings, work or from getting things needed for daily living? No 06/03/2024 Utilities Answer Date Recorded In the past 12 months, has t he electric, gas, oil or water company threatened to shut off services in your home? No 06/03/2024 Depression Answer Date Recorded Patient Health Questionnaire-2 Score 0 06/03/2024 Internet Access Answer Date Recorded Internet Access Q1 No 06/17/2024 Internet Access Q2 I do not want or need it 11/2023 Sex and Gender Information Value Date Recorded Sex Assigned at Male 08/15/2022 10:20 AM EDT Legal Sex Male 10:20 AM EDT Gender Identity Male 08/15/2022 10:20 AM EDT Sexual Orientation Choose not to disclose 2021 10:20 AM EDT Last Filed Vital Signs Vital Sign Reading Time Taken Comments Blood Pressure 144/79 01/22/2025 3:17 PM EDT Pulse 65 01/22/2025 3:17 PM EDT Temperature 36.6 ??C (97.9 ??F) 01/22/2025 3:17 PM ED T Respiratory Rate 18 01/22/2025 3:17 PM EDT Oxygen Saturation 95% 01/22/2025 3:17 PM EDT Inhaled Oxygen Concentration - - Weight 90.7 kg (200 lb) 02/02/2024 1:40 PM EDT Height 152.4 cm (5') 06/03/2024 1:08 PM EDT Body Mass Index 39.06 02/02/2024 1:40 PM EDT Plan of Treatment Upcoming Encounters Date Type Department Care Team (Late st Contact Info) Description 04/04/2025 11:30 AM EDT Office Visit [facility] [address] [place] [id number] Name, MD Young [address] [place] [address] Health Maintenance Due Date Last Done Comments Eye Exam 1955 Dental Oral Exam 05/28/2019 11/27/2018, 10/14/2016 Dental X-Ray: Full Mouth 10/15/2019 10/14/2016 Dental Prophylaxis 05/26/2020 11/25/2019, 0 05/24/2019, 01/04/2018 Dental X-Ray: Bitewings 02/09/2022 02/09/20 21, 11/27/2018, 01/04/2018, Additional history exists Lipid Panel 02/13/2025 02/14/2024, 06/16, 05/04/2022, Additional history exists Diabetes: Hemoglobin A1C 04/23/2025 025, 09/04/2024, 06/03/2024, Additional history exists Alcohol/Substance Use Screening 06/03/2025 06/03/2024 Depression Screening 06/03/2025 06/03/2024, 06/03/20 24 SDOH Screening 06/03/2025 06/03/2024 Tobacco Screening 01/22/2026 01/22/2025 DTaP/Tdap/Td Vaccines (2 - Td or Tdap) 04/04/2027 04/04/2017, 04/22/2008 Hepatitis B Vaccines Completed 02/17/2010, 05/23/2008, 04/22/2008 Zoster Vaccines Completed 03/18/2022, 12/15, 02/17/2010 Pneumococcal Vaccine: 50+ Years Completed 07/06/2023, 02/16/2016, 10/12/2010 RSV Patients and Patients Aged 60 years or older Completed 09/26/2023 COVID-19 Vaccine Completed 07/11/2024, 02/2023, 10/28/2022, Additional history exists Influenza Vaccine Completed 07/11/2024, , 07/14/2021, Additional history exists Diabetes: Foot Exam Discontinued 09/04/2024, 09/04/2024, 09/04/2024, Additional history exists HIB Vaccines Aged Out No longer eligi ble based on patient's age to complete this topic HPV Vaccines Aged Out No longer eligi ble based on patient's age to complete this topic Hepatitis A Vaccines Aged Out No long er eligible based on patient's age to complete this topic IPV Vaccines Aged Out No longer eligi ble based on patient's age to complete this topic Meningococcal Vaccine Aged Out No valerio dane eligible based on patient's age to complete this topic RSV under 20 months Aged Out No longe r eligible based on patient's age to complete this topic Rotavirus Vaccines Aged Out No longer eligible based on patient's age to complete this topic Goals Goal Patient Goal Type Associated Problems Recent Progress Patient-Stated? Author Hemoglobin A1c < 7.5 Result Component 8(01/22/2025 3:19 PM EDT) No Addie Adams, PharmD Record your blood sugar as directed Result Component No Addie Adams, PharmKuldip Note: Use CGM, ensuring sensor is scanned at least once every 8 hours to capture 24H data. Check BG manually, as directed. Procedures Procedure Name Priority Date/Time Associated Diagnosis Comments POCT GLYCATED HEMOGLOBIN, TOTAL Routine 01/22/2025 3:19 PM EDT Type 2 diabetes mellitus with other circulatory complication, with long-term current use of insulin ([facility]) POCT GLUCOSE Routine 01/22/2025 3:18 PM EDT Type 2 diabetes mellitus with other circulatory complication, with long-term current use of insulin ([facility]) LIPID PANEL, STANDARD Routine 02/14/2024 10:23 AM EDT Type 2 diabetes mellitus with other circulatory complication, with long-term current use of insulin ([facility]) PAD (peripheral artery disease) ([facility]) BITEWING - SINGLE RADIOGRAPHIC IMAGE Routine 02/08/2021 12:00 AM EDT PROPHYLAXIS - ADULT Routine 11/25/2019 1 2:00 AM EST PERIODIC ORAL EVALUATION - ESTABLISHED PATIENT Routine 11/27/2018 12:00 AM EST INTRAORAL - COMPLETE SERIES OF RADIOGRAPHIC IMAGES Routine 10/14/2016 12:00 AM EST from Last 3 Months or Most Recently Relevant to Health Maintenance Results * (ABNORMAL) POCT HGB A1C (01/22/2025 3:19 PM EDT) Hemoglobin A1C 8.0(A) 4.0 - 6.0 % QC Media Lot # [id number] Lot# Expiration Date [id number] Blood 01/22/2025 3:19 PM EDT us Young Pradhan MD POINT OF CARE TEST ENTER/EDIT OR DERABLES Final Result * POCT Glucose (01/22/2025 3:18 PM EDT) Glucose Blood, POC 155 60 - 200 mg/dL QC Media Lot # [id number] Lot# Expiration Date [id number] Blood Capillary blood specimen / Unknown 01/22/2025 3:18 PM EDT us Young Pradhan MD POINT OF CARE TEST ENTER/EDIT OR DERABLES Final Result * (ABNORMAL) Lipid Panel, Standard (02/14/2024 10:23 AM EDT) Triglycerides 99 <150 mg/dL [facility] Comment:Desirable Triglyceri de: less than 150 mg/dLBorderline High Triglyceride 150-199 mg/dLHigh Triglyceride: 200-499 mg/dLVery High Triglyceride: greater than or equal to 5OO mg/dL Cholesterol 94 <200 mg/dL [facility] Comment:Desirable Cholestero l: less than 200 mg/dLBorderline High Cholesterol: 200-239 mg/dLHigh Cholesterol: greater than 239 mg/dL LDL Cholesterol Calculated 45 <100 mg/dL [facility] Comment:Desirable LDL: less than 100 mg/dLNear Optimal/Above Optimal LDL: 110- 129 mg/dLBorderline High LDL: 130-159 mg/dLHigh LDL: 160-189 mg/dLVery High LDL: greater than or equal to 190 mg/dL HDL Cholesterol 30(L) >40 mg/dL [facility] Comment:Desirable HDL: great er than 40 mg/dL Note: This HDL assay may give artificially low results in patients with liver disease. Blood Venous blood specimen / Unknown 02/14/2024 10:23 AM EDT 02/14/2024 11:23 AM EDT us Young Pradhan MD LAB BLOOD ORDERABLES Final Resul t [facility] [address] [place] [phone] from Last 3 Months or Most Recently Relevant to Health Maintenance Insurance [facility] Care Teams Mailing Section Clerk Relationship Specialty Start Date End Date Name, MD Young [address] [place] [id number] PCP - General Family Medicine 01/20/16 Addie Adams, Isabell [address] [place] [address] Pharmacist Internal Medicine 05/25/23
--- OUTSIDE RECORDS SUMMARY | 2025-01-29 11:39 | XMS_ITS | Encounter Summary ---
Author Organization [employer] Address [address] [facility] 7t [place] [address] Care Team Providers Care Chip Frier Name Role Phone Name, Young SORENSON Primary Care Provider [phone] Addie Adams PharmD Unavailable [phone] Reason for Visit * Reason Comments Med Refill Encounter Details Date Type Department Care Team ([facility] st Contact Info) Description 02/21/2024 Refill [facility] [address] [place], [place] [phone] Addie Adams, PharmD [address] [place], [place] [phone] Type 2 diabetes mellitus with other circulatory complication, with long-term current use of insulin ([facility]) Social History Tobacco Use Types Packs/Day Years Used Date Smoking Tobacco: Former Cigarettes Smokeless Tobacco: Never Alcohol Use Standard Drinks/Week Comments Never 0 (1 standard drink = 0.6 oz pur e alcohol) Depression Answer Date Recorded Patient Health Questionnaire-9 Score 0 03/29/2023 Housing Stability Answer Date Recorded What is your housing situation today? I have thea long 08/01/[address] you li ve. Do you have problems with any of the following? None of the above 08/01/2023 Food Insecurity Answer Date Recorded Within the past 12 months, y ou worried that your food would run out before you got money to buy more: Never True 08/01/2023 Within the past 12 months,th e food you bought just didn't last and you didn't have enough money to get more: Never True Transportation Answer Date Recorded In the past 12 months, has l ack of transportation kept you from medical appts, meetings, work or from getting things needed for daily living? No 08/01/2023 Utilities Answer Date Recorded In the past 12 months, has t he electric, gas, oil or water company threatened to shut off services in your home? No 08/01/2023 Depression Answer Date Recorded Patient Health Questionnaire-2 Score 0 03/29/2023 Sex and Gender Information Value Date Recorded Sex Assigned at Male 08/15/2022 10:20 AM EDT Legal Sex Male 10:20 AM EDT Gender Identity Male 08/15/2022 10:20 AM EDT Sexual Orientation Choose not to disclose 2021 10:20 AM EDT documented as of this encounter Plan of Treatment Upcoming Encounters Date Type Department Care Team (Late st Contact Info) Description 04/04/2025 11:30 AM EDT Office Visit [facility] [address] [place] [phone] Name, MD Young [address] [place] [address] [phone] documented as of this encounter Goals Goal Patient Goal Type Associated Problems Recent Progress Patient-Stated? Author Hemoglobin A1c < 7.5 Result Component 8(01/22/2025 3:19 PM EDT) No Addie Adams PharmD Record your blood sugar as directed Result Component No Addie Adams PharmD Note: Use CGM, ensuring sensor is scanned at least once every 8 hours to capture 24H data. Check BG manually, as directed. documented as of this encounter Visit Diagnoses Diagnosis Type 2 diabetes mellitus with other circulatory complication, with long-term current use of insulin ([facility]) documented in this encounter Additional Health Concerns Assessment Noted Time PHQ-9 Depression Total Score: 0 03/29/20 23 11:06 AM EDT documented as of this encounter Care Teams Chip Frier Relationship Specialty Start Date End Date Name, MD Young [address] [place] [address] [phone] PCP - General Family Medicine 01/20/16 Addie Adams PharmD [address] [place] [address] Pharmacist Internal Medicine 05/25/23 documented as of this encounter
--- OUTSIDE RECORDS SUMMARY | 2025-01-29 11:39 | XMS_ITS | Encounter Summary ---
Author Organization [facility] Address 75 [facility] 7t [place] [address] Care Team Providers Care Wheat Washer Name Role Phone Name, Young SORENSON Primary Care Provider [phone] Addie Adams PharmD Unavailable Encounter Details Date Type Department Care Team (Late st Contact Info) Description 07/03/2023 Orders Only [facility] [address] [place] [phone] Name, MD Young [address] [place] [phone] Social History Tobacco Use Types Packs/Day Years Used Date Smoking Tobacco: Former Cigarettes Smokeless Tobacco: Never Alcohol Use Standard Drinks/Week Comments Never 0 (1 standard drink = 0.6 oz pur e alcohol) Depression Answer Date Recorded Patient Health Questionnaire-9 Score 0 03/29/2023 Depression Answer Date Recorded Patient Health Questionnaire-2 [...] 11:30 AM EDT Office Visit [facility] [address] [place] [phone] NameYoung MD [address] [place] [phone] documented as of this encounter Goals Goal [...] documented as of this encounter Visit Diagnoses Not on filedocumented in this encounter Additional Health Concerns Assessment Noted Time PHQ-9 Depression Total Score: 0 03/29/20 23 11:06 AM EDT documented as of this encounter Care Teams Wheat Washer Relationship Specialty Start Date End Date Name, MD Young [address] [place] [address] PCP - General Family Medicine 01/20/16 Addie Adams PharmD [address] [place] [address] Pharmacist Internal Medicine 05/25/23 documented as of this encounter
--- OUTSIDE RECORDS SUMMARY | 2025-01-29 11:39 | XMS_ITS | Encounter Summary ---
Author Organization [employer] [facility] Address 75 [facility] 7t [place] [address] Care Team Providers Care Emergency Management System Director Name Role Phone Name, Young SORENSON Primary Care Provider [phone] Addie Adams PharmD Unavailable [phone] Encounter Details Date Type Department Care Team (Late st Contact Info) Description 11/14/2022 Orders Only [facility] [address] [place] [address] [phone] Cheryl Law LPN Social History Tobacco Use Types Packs/Day Years Used Date Smoking Tobacco: Never Assessed Sex and Gender Information Value Date Recorded Sex Assigned at Male 08/15/2022 10:20 AM EDT Legal Sex Male 10:20 AM EDT Gender Identity Male 08/15/2022 10:20 AM EDT Sexual Orientation Choose not to disclose 2021 10:20 AM EDT COVID-19 Exposure Response Date Recorded In the last 10 days, have yo u been in contact with someone who was confirmed or suspected to have Coronavirus/COVID-19? No / Unsure 10/28/2022 2:23 PM EST documented as of this encounter Plan of Treatment Upcoming Encounters Date Type Department Care Team (Late st Contact Info) Description 04/04/2025 11:30 AM EDT Office Visit [facility] [address] [place] [address] [phone] Young Pradhan MD [address] [place], [place] [phone] documented as of this encounter Visit Diagnoses Not on filedocumented in this encounter Care Teams Emergency Management System Director Relationship Specialty Start Date End Date Young Pradhan MD [address] [place] [address] PCP - General Family Medicine 01/20/16 Addie Adams, Isabell [address] [place] [address] Pharmacist Internal Medicine 05/25/23 documented as of this encounter
--- OUTSIDE RECORDS SUMMARY | 2025-01-29 11:39 | XMS_ITS | Encounter Summary ---
Author Organization [employer] Address 75 [facility] 7t [place] [address] Care Team Providers Care Truck Repair Service Estimator Name Role Phone Name, Young SORENSON Primary Care Provider [phone] Addie Adams PharmD Unavailable [phone] Reason for Visit * Reason Comments Med Refill Encounter Details Date Type Department Care Team ([facility] st Contact Info) Description 10/11/2023 Refill [facility] [address] [place], [place] [phone] Name, MD Young [address] [place] [address] Social History Tobacco Use Types Packs/Day Years [...] Office Visit [facility] [address] [place] [address] [phone] Name, MD Young [address] [place] [phone] documented as of this encounter Goals Goal Patient Goal Type Associated Problems Recent Progress Patient-Stated? Author Hemoglobin A1c < 7.5 Result Component 8(01/22/2025 3:19 PM EDT) No Addie Adams PharmKuldip Record your blood sugar as directed Result Component No Addie Adams PharmD Note: Use CGM, ensuring sensor is scanned at least once every 8 hours to capture 24H data. Check BG manually, as directed. documented as of this encounter Visit Diagnoses Not on filedocumented in this encounter Additional Health Concerns Assessment Noted Time PHQ-9 Depression Total Score: 0 03/29/20 11:06 AM EDT documented as of this encounter Care Teams Truck Repair Service Estimator Relationship Specialty Start Date End Date Name, MD Young [address] [place] [address] [phone] PCP - General Family Medicine 01/20/16 Addie Adams, PharmD [address] [place] [address] [phone] Pharmacist Internal Medicine 05/25/23 documented as of this encounter
--- OUTSIDE RECORDS SUMMARY | 2025-01-29 11:39 | XMS_ITS | Encounter Summary ---
Author Organization [employer] [facility] Address [address] [facility] 7t [place] [address] Care Team Providers Care Transformer Stock Clerk Name Role Phone NameYoung MD Primary Care Provider [phone] Addie Adams PharmD Unavailable [phone] Encounter Details Date Type Department Care Team ([facility] Contact Info) Description 04/20/[address] [facility] [address] [place] [address] [phone] Cheryl Law LPN Social History Tobacco Use [...] suspected to have Coronavirus/COVID-19? No / Unsure 03/29/2023 10:40 AM EDT documented as of this encounter Plan of Treatment Upcoming Encounters Date Type Department Care Team ([facility] Contact Info) Description 04/04/2025 11:30 AM EDT Office [address] [facility] [address] [place] [address] [phone] Name, MD Young [address] [place] [phone] documented as of this encounter Visit Diagnoses Not on filedocumented in this encounter Additional Health Concerns Assessment Noted Time PHQ-9 Depression Total Score: 0 03/29/20 11:06 AM EDT documented as of this encounter Care Teams Transformer Stock Clerk Relationship Specialty Start Date End Date Name, MD Young [address] [place] [address] PCP - General Family Medicine 01/20/16 Addie Adams PharmD [address] [place] [phone] Pharmacist Internal Medicine 05/25/23 documented as of this encounter
--- OUTSIDE RECORDS SUMMARY | 2025-01-29 11:39 | XMS_ITS | Encounter Summary ---
Author Organization [employer] Address 75 [facility] 7t [place] [address] Care Team Providers Care Laborer Adjustable Steel Joist Name Role Phone Name, Young SORENSON Primary Care Provider [phone] Addie Adams PharmD Unavailable [phone] Reason for Visit * Reason Comments Med Refill Encounter Details Date Type Department Care Team (Late st Contact Info) Description 01/29/2025 Refill [facility] [address] [place], [place] [phone] Name, MD Young [address] [place] [address] Type 2 diabetes mellitus with other circulatory complication, with long-term current use of insulin ([facility]) Social History Tobacco Use Types Packs/Day Years [...] the past 12 months, has t he [employer], gas, oil or water [employer] threatened to shut off services in your [...] Description 04/04/2025 11:30 AM EDT Office Visit [facility] [address] [place] [phone] Name, MD Young [address] [place] [address] documented as of this encounter Goals Goal Patient Goal Type Associated Problems Recent Progress Patient-Stated? Author Hemoglobin A1c < 7.5 Result Component 8(01/22/2025 3:19 PM EDT) No Addie Adams, PharmD Record your blood sugar as directed Result Component No PuAddie castanon, PharmD Note: Use CGM, ensuring sensor is scanned at least once every 8 hours to capture 24H data. Check BG manually, as directed. documented as of this encounter Visit Diagnoses Diagnosis Type 2 diabetes mellitus with other circulatory complication, with long-term current use of insulin ([facility]) documented in this encounter Additional Health Concerns Assessment Noted Time PHQ-9 Depression Total Score: 0 06/03/20 24 1:14 PM EDT documented as of this encounter Care Teams Laborer Adjustable Steel Joist Relationship Specialty Start Date End Date Name, MD Young [address] [place] [address] PCP - General Family Medicine 01/20/16 Addie Adams PharmD [address] [place] [address] Pharmacist Internal Medicine 05/25/23 documented as of this encounter
--- OUTSIDE RECORDS SUMMARY | 2025-01-29 11:39 | XMS_ITS | Encounter Summary ---
Author Organization [employer] Address [address] [facility] 7t [place] [address] Care Team Providers Care Stoner Out Name Role Phone Name, Young SORENSON Primary Care Provider [phone] Addie Adams PharmD Unavailable [phone] Encounter Details Date Type Department Care Team ([facility] st Contact Info) Description 12/10/2024 Telephone [facility] [address] [place], [place] [phone] Name, MD Young [address] [place] [address] Social History Tobacco Use Types Packs/Day Years [...] Description 04/04/2025 11:30 AM EDT Office Visit [facility] [address] [place] [phone] Young Pradhan MD [address] [place] [address] documented as of this encounter Goals Goal Patient Goal Type Associated Problems Recent Progress Patient-Stated? Author Hemoglobin A1c < 7.5 Result Component 8(01/22/2025 3:19 PM EDT) No Puia, Addie, PharmD Record your blood sugar as directed Result Component No Puia, Addie, PharmD Note: Use CGM, ensuring sensor is scanned at least once every 8 hours to capture 24H data. Check BG manually, as directed. documented as of this encounter Visit Diagnoses Not on filedocumented in this encounter Additional Health Concerns Assessment Noted Time PHQ-9 Depression Total Score: 0 06/03/20 24 1:14 PM EDT documented as of this encounter Care Teams Stoner Out Relationship Specialty Start Date End Date Young Pradhan MD [address] [place] [address] PCP - General Family Medicine 01/20/16 Addie Adams PharmD [address] [place] [address] Pharmacist Internal Medicine 05/25/23 documented as of this encounter
--- OUTSIDE RECORDS SUMMARY | 2025-01-29 11:39 | XMS_ITS | Clinical Summary ---
Author Organization [facility] Address [address] [place] [address] [place] [address] Phone Care Team Providers Care Professor Of Mechanical Engineering Name Role Phone Name, Young SORENSON Primary Care Provider [phone] Allergies No known active allergies Medications aspirin (ST MILLY) 81 MG EC tablet Take 81 mg by mouth 1 (one) time each day Active carvedilol (COREG) 3.125 MG tablet Take 3.125 mg by mouth 2 (two) times a day with meals Active tamsulosin (Flomax) 0.4 MG 24 hr capsule Take 0.4 mg by mouth 1 (one) time each day Active Empagliflozin (Jardiance) 10 MG tablet Take 1 tablet by mouth 1 (one) time each day Active insulin glargine (LANTUS) 100 UNIT/ML injection Inject under the skin every night Active lisinopril 20 MG tablet Take 20 mg by mouth 1 (one) time each day Active gabapentin (NEURONTIN) 300 MG capsule Take 300 mg by mouth 3 (three) times a day Active insulin aspart (NovoLOG) 100 UNIT/ML injection Inject under the skin 3 (three) times a day before meals Active clopidogrel (PLAVIX) 75 MG tablet Take 75 mg by mouth 1 (one) time each day Active sertraline (ZOLOFT) 50 MG tablet Take 50 mg by mouth 1 (one) time each day Active simvastatin (ZOCOR) 20 MG tablet Take 20 mg by mouth every night Active traZODone (DESYREL) 50 MG tablet Take 50 mg by mouth every night Active nitroglycerin (NITROSTAT) 0.[address] under the tongue See administration instructions Active metFORMIN (GLUCOPHAGE) 500 MG tablet Take by mouth Ac tive Active Problems Problem Noted Date Diagnosed Date Chronic kidney disease 07/05/2021 Peripheral vascular disease 03/11/2010 Family History Medical History Relation Comments Diabetes Mother Relation Status Comments Father Mother Social History Tobacco Use Types Packs/Day Years Used Date Smoking Tobacco: Never Smokeless Tobacco: Never Alcohol Use Standard Drinks/Week Comments Never 0 (1 standard drink = 0.6 oz pur e alcohol) Sex and Gender Information Value Date Recorded Sex Assigned at Not on file Legal Sex Male 5:00 PM EST Gender Identity Not on file Sexual Orientation Not on file Last Filed Vital Signs Vital Sign Reading Time Taken Comments Blood Pressure 126/70 07/06/2021 10:07 AM EDT Pulse 61 07/06/2021 10:07 AM EDT Temperature - - Respiratory Rate - - Oxygen Saturation 95% 07/06/2021 10:07 AM EDT Inhaled Oxygen Concentration - - Weight 91.6 kg (202 lb) 07/06/2021 10:07 AM EDT Height - - Body Mass Index - - Plan of Treatment Health Maintenance Due Date Last Done Comments Pneumococcal Vaccine: 50+ Ye ars (1 of 2 - PCV) 1964 Influenza Vaccine (Season Ended) 2025 Hepatitis B Vaccine Aged Out No longe r eligible based on patient's age to complete this topic Insurance [facility] ([id number]) [facility] ([id number]) CHERYL NICHOLS [phone] Care Teams Professor Of Mechanical Engineering Relationship Specialty Start Date End Date Name, MD Young [address] [place] [phone] PCP - General Internal Medicine 07/06/21
[2025-01-29 11:40] LABS: Alanine Aminotransferase 15 U/L (0-40); Albumin Level 3.7 g/dL (3.5-5.0); Alkaline Phosphatase 95 U/L (39-117); Anion Gap 11 (12-20); Aspartate Amino Transferase 26 U/L (5-37); Bilirubin Total 0.4 mg/dL (0.0-1.0); Blood Urea Nitrogen 28 mg/dL (9-16); Calcium 9.4 mg/dL (8.4-10.2); Carbon Dioxide 27 mmol/L (22-29); Chloride 106 mmol/L (96-108); Cholesterol 86 mg/dL (<200); Estimated Glomerular Filt Rate 55; Glucose Random 172 mg/dL (60-115); HDL Cholesterol 23 mg/dL (>40); LDL Cholesterol Calculated 35 mg/dL (<100); Potassium 4.5 mmol/L (3.3-5.1); Sodium 139 mmol/L (135-145); Total Protein 7.9 g/dL (6.5-8.0); Triglycerides 144 mg/dL (<150)
[2025-01-29 11:43] LABS: Basophils Absolute Auto 0.1 X10*3/uL (0.0-0.2); Basophils Percent Auto 0.7 % (0-2); Eosinophils Absolute Auto 0.5 X10*3/uL (0.0-0.4); Eosinophils Percent Auto 6.2 % (0-4); Hematocrit 39.6 % (42.0-52.0); Hemoglobin 12.5 g/dl (14.0-18.0); Imm Gran Abs Auto 0.03 X10*3/uL (0.00-0.03); Imm Gran Pct Auto 0.4 % (0.0-0.4); Lymphocytes Absolute Auto 2.2 X10*3/uL (1.2-4.9); MANUAL DIFF FLAG SCAN; Mean Corpuscular HGB Conc 31.6 g/dl (31.0-36.0); Mean Corpuscular Hemoglobin 28.9 pg (27.0-33.0); Mean Corpuscular Volume 91.5 fL (80.0-98.0); Monocytes Absolute Auto 0.7 X10*3/uL (0.1-1.2); Monocytes Percent Auto 8.1 % (2-11); Neutrophils Percent Auto 58.6 % (45-73); PLT CLUMP 1; Red Blood Count 4.33 X10*6/uL (4.60-5.80); Red Cell Distribution Width 14.2 % (11.0-16.0); SCAN SMEAR FLAG 1
[2025-01-29 11:45] LABS: White Blood Count 8.4 X10*3/uL (4.8-10.8)
[2025-01-29 12:43] LABS: Mean Platelet Volume 11.3 fL (9.4-12.4); Platelet Count 180 X10*3/uL (160-400)
[2025-01-29 12:44] LABS: SLIDE REVIEW VERIFIED
== END 2025-01-29 10:07 | disposition home or self-care (01) ==
LOC: HO.HHCL 10:06
PROVIDERS: Visit Provider Internal Medicine Geriatric Medicine
DX: E11.59 Type 2 diabetes mellitus with other circulatory complications (principal); E11.21 Type 2 diabetes mellitus with diabetic nephropathy; Z79.4 Long term (current) use of insulin
CPT/HCPCS: 36415; 80053; 80061; 85025

== ENCOUNTER 2025-03-27 10:52 | Outpatient (AMB) | payer OTHER, SELFPAY ==
--- NOTE | 2025-03-27 11:03 | A.OFFVIS_ITS ---
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 Patient states he had his amputation in [id number]. No issues so far. Accompanied by: Son Allergies No Known Allergies [NKA] Allergy (Mild, Verified 03/27/25 11:04) NOT APPLICABLE HPI HPI BAKERY SUPERVISOR PVD h/x of amputation: Details: Rodrigo, a pleasant 79 yo mostly [place] speaking male patient, is presenting today with his son-in-law on referral from his PCP for concerns of PAD. The pt has an extensive vascular hx and is s/p left BKA in (at [place]) and right first 2 toes amputations (unknown time). He most recently was followed by [facility], his most recent appt was in 2021, when he had an US the pt states but nothing was done and there was no additional follow up. He currently has no pain/discomfort or any complaints in the right lower extremity. His PCP has requested that he be followed by Vascular due to the extensive nature of his vascular issues. [facility] Medical History BPH (benign prostatic hyperplasia) Hyperlipidemia Hypertension Peripheral vascular disease Insulin dependent diabetes mellitus Surgical History History of left below knee amputation Social History Patient Tobacco Use Status: Never used Tobacco Review of Systems Const Reports as per HPI and Denies weakness ENT Reports Normal hearing present and Denies dizziness Card Reports as per HPI, Denies chest pain, Denies chest pain at rest, Denies chest pain with activity, Denies dyspnea and Denies dyspnea on exertion Resp Reports as per HPI, Denies cough, Denies dyspnea and Denies dyspnea on exertion GI Reports as per HPI, Denies abdominal pain, Denies nausea and Denies vomiting Musc Denies numbness Skin/Breast Reports as per HPI, Denies erythema and Denies wounds Neuro Reports Normal hearing present, Denies dizziness, Denies numbness, Denies Sensory deficit (Neuro) and Denies weakness Psych Reports no additional complaints Endo Reports no additional complaints Physical Exam Neuro Cranial nerves: Yes Normal hearing present Sensory Exam: No Sensory deficit (Neuro) Extrem Other: Left leg: healed BKA; pt has prosthetic on. Right lower extremity: R1/2 amputation site well healed. Palpable DP pulse. No wounds noted. Foot/leg warm to the touch. No discoloration noted. Assessment & Plan Assessment & Plan (1) Peripheral artery disease: Code(s): I73.9 - Peripheral vascular disease, unspecified Category: Medical Plan: Rodrigo is presenting today on a referral from his PCP for evaluation/continued surveillance of PAD. The pt was previously at [facility]; however, he has not been seen there since 2021. The pt currently has no complaints in the right lower extremity. He states he believes his last imaging of the right leg was in 2021 and there was nothing found. The pt's diabetes is well controlled and the PCP would like to start Jardiance for further control; however, they want to make sure his vascular status is stable. We have ordered an arterial duplex US and will have him follow up with us after the US has been completed. We discussed the red flag signs to be aware of, including claudication, weakness, etc. Thank you for allowing us to participate in the patient's care. If there are any questions or concerns, please do not hesitate to reach out to us. Orders: Orders US arterial duplex LE RT 1 Week I73.9 - Peripheral vascular disease, unspecified Coding Level of Care Code New Pt Level 4 (64855) Diagnoses Peripheral artery disease I73.9
--- OUTSIDE RECORDS SUMMARY | 2025-03-27 12:49 | XMS_ITS | Encounter Summary ---
Author Organization [employer] [facility] Address [address] [facility] 7t [place] [address] Care Team Providers Care Tying Machine Operator Lumber Name Role Phone NameYoung MD Primary Care Provider [phone] Addie Adams PharmD Unavailable [phone] Encounter Details Date Type Department Care Team ([facility] Contact Info) Description 04/20/2023 Orders Only [facility] [address] [place] [address] [phone] Cheryl Law LPN Social History Tobacco Use [...] Upcoming Encounters Date Type Department Care Team ([facility] Contact Info) Description 04/04/2025 11:30 AM EDT Office Visit [facility] [address] [place] [address] [phone] Name, MD Young [address] [place] [phone] documented as of this encounter Visit Diagnoses Not on filedocumented in this encounter Additional Health Concerns Assessment Noted Time PHQ-9 Depression Total Score: 0 03/29/20 11:06 AM EDT documented as of this encounter Care Teams Tying Machine Operator Lumber Relationship Specialty Start Date End Date Name, MD Young [address] [place] [phone] PCP - General Family Medicine 01/20/16 Addie Adams PharmD [address] [place] [phone] Pharmacist Internal Medicine 05/25/23 documented as of this encounter
== END 2025-03-27 11:16 | disposition home or self-care (01) ==
LOC: HO.HVS 10:53
PROVIDERS: PCP Internal Medicine Geriatric Medicine; Visit Provider Physician Assistant Surgical
DX: I73.9 Peripheral vascular disease, unspecified (principal)
CPT/HCPCS: 99204

== ENCOUNTER → 2025-03-27 10:52 | Outpatient (BNVA) | payer OTHER, SELFPAY | PROVIDERS: PCP Internal Medicine Geriatric Medicine; Visit Provider Physician Assistant Surgical | DX: I73.9 Peripheral vascular disease, unspecified (principal) | CPT/HCPCS: 99202 ==